=== PATIENT | female | born 1955 | race Caucasian/White ===

== ENCOUNTER 2017-06-10 13:51 | Emergency (ER) | payer SELFPAY ==
[2017-06-10 14:00] VITALS: BP 155/91; PULSE 62; RESP 18; TEMP 98.2; O2SAT 96
[2017-06-10] MEDS ORDERED: HYDR-3133 PO (14:12)
[2017-06-10] MEDS ORDERED: VITATAB43 PO (14:12)
[2017-06-10] MEDS ORDERED: ATOR80TA45 PO (14:12)
[2017-06-10] MEDS ORDERED: ALBU6.7H INH (14:12)
[2017-06-10] MEDS ORDERED: ASPI-516 CHEW (14:12)
[2017-06-10] MEDS ORDERED: METO50TA PO (14:12)
[2017-06-10] MEDS ORDERED: ONE-TAB14 (14:12)
[2017-06-10] MEDS ORDERED: NEXI40CA PO (14:12)
[2017-06-10] MEDS ORDERED: METF500T PO (14:12)
[2017-06-10] MEDS ORDERED: ADVA250A INH (14:12)
[2017-06-10] MEDS ORDERED: PARO10TA2 PO (14:12)
[2017-06-10] MEDS ORDERED: GABA600T PO (14:12)
[2017-06-10] MEDS ORDERED: DONE10TA7 PO (14:12)
[2017-06-10] MEDS ORDERED: MELO15TA20 PO (14:12)
[2017-06-10] MEDS ORDERED: ORPHENADRINE INJ 60 MG/2 ML AMP IM ONE (15:00)
[2017-06-10] MEDS ORDERED: KETOROLAC TROMETHAMINE 60 MG/2 ML (IM) VIAL IM ONE (15:00)
--- NOTE | 2017-06-10 15:57 | RADRPT ---
EXAM DATE/TIME: 06/10/2017 15:17 [facility] COMPARISON: No previous studies available for comparison. INDICATIONS : Fall. Upper and lower back pain. RADIATION DOSE: 43.28 CTDIvol (mGy) ; Combined studies - Thoracic Spine/Lumbar Spine MEDICAL HISTORY : Lyme disease. Barretts esophagus. Mitral valve prolapse. Diabetes. SURGICAL HISTORY : Orthopedic surgery. ENCOUNTER: Initial ACUITY: 1 day PAIN SCALE: 7/10 LOCATION: spine TECHNIQUE: Volumetric scanning of the thoracic spine was performed. Multiplanar reconstructions in the sagittal , coronal and oblique axial planes were performed. Using automated exposure control and adjustment o f the mA and/or kV according to patient size, radiation dose was kept as low as reasonably achievable to obtain optimal diagnostic quality images. DICOM format image data is available electronically f or review and comparison. FINDINGS: FINDINGS: Sagittal images demonstrate normal vertebral body alignment and curvature. No fractures identified. A xial images performed from T1-T2 through T12-L1. There is multilevel disc space narrowing and margina l osteophyte formation maximal at T5-T6. Coronary artery calcifications are present. T1-T2: No significant abnormalities identified. T2-T3: No significant abnormalities identified. T3-T4: No significant abnormalities identified. T4-T5: No significant abnormalities identified. T5-T6: No significant abnormalities identified. T6-T7: No significant abnormalities identified. T7-T8: No significant abnormalities identified. T8-T9: No significant abnormalities identified. T9-T10: No significant abnormalities identified. T10-T11: No significant abnormalities identified. T11-T12: No significant abnormalities identified. T12-L1: No significant abnormalities identified. CONCLUSION: 1. Mild degenerative changes as described above. There is no evidence of acute fracture. Javon Beckman MD on June 10, 2017 at 15:49 Board Certified Radiologist. This report was verified electronically.
--- NOTE | 2017-06-10 16:05 | RADRPT ---
EXAM DATE/TIME: 06/10/2017 15:17 [facility] COMPARISON: No previous studies available for comparison. INDICATIONS : Fall. Upper and lower back pain. RADIATION DOSE: 43.28 CTDIvol (mGy) ; Combined studies - Thoracic Spine/Lumbar Spine MEDICAL HISTORY : Lyme disease. Barretts esophagus. Mitral valve prolapse. Diabetes. SURGICAL HISTORY : Orthopedic surgery. ENCOUNTER: Initial ACUITY: 1 day PAIN SCALE: 7/10 LOCATION: spine TECHNIQUE: Volumetric scanning of the lumbar spine was performed. Multiplanar reconstructions in the sagittal, coronal and oblique axial planes were performed. Using automated exposure control and adjustment of the mA and/or kV according to patient size, radiation dose was kept as low as reasonably achievable t o obtain optimal diagnostic quality images. DICOM format image data is available electronically for review and comparison. FINDINGS: VERTEBRAE: Normal vertebral body height. ALIGNMENT: No evidence of subluxation. T12-L1: The thecal sac has a normal diameter. No evidence of disc bulge or protrusion. The neural foramina are patent bilaterally. L1-L2: The thecal sac has a normal diameter. No evidence of disc bulge or protrusion. The neural foramina are patent bilaterally. L2-L3: The thecal sac has a normal diameter. No evidence of disc bulge or protrusion. The neural foramina are patent bilaterally. L3-L4: The thecal sac has a normal diameter. No evidence of disc bulge or protrusion. The neural foramina are patent bilaterally. L4-L5: The thecal sac has a normal diameter. No evidence of disc bulge or protrusion. The neural foramina are patent bilaterally. L5-S1: The thecal sac has a normal diameter. No evidence of disc bulge or protrusion. The neural foramina are patent bilaterally. CONCLUSION: Normal examination. Mehrdad Ojeda MD on June 10, 2017 at 16:03 Board Certified Radiologist. This report was verified electronically.
--- NOTE | 2017-06-10 16:49 | PD ---
HPI . Fall Chief Complaint: Fall Time Seen by Provider: 14:06 Travel History International Travel<30 days: No Contact w/Intl Traveler<30days: No Traveled to known affect area: No History of Present Illness HPI 61-year-old female presents emergency department via EMS for evaluation of a fall she sustained at the grocery store this afternoon when she slipped on wet concrete during the rain. Patient denies hitting her head or losing consciousness. Patient arrived to the emergency room spinally immobilized. Patient denies any fever, chills, malaise, chest pain, shortness breath, incontinence of urine or stool. Patient is complaining of thoracic and lumbar back pain. Patient denies any paresthesias. She denies any saddle numbness. PFSH Past Medical History Anemia: Yes Arthritis: Yes Asthma: Yes Autoimmune Disease: Yes (LYME DISEASE) Cardiovascular Problems: Yes (SINUS TACH, MITRAL VALVE PROLAPSE) Diabetes: Yes Patient Takes Glucophage: Yes Fibromyalgia: Yes Gastrointestinal Disorders: Yes (IBS, FATTY LIVER, ANOOP'S ESOPHAGUS) GERD: Yes Glaucoma: Yes Hiatal Hernia: Yes Medical other: Yes (ORTHOPEDIC, BLEPHARITIS) Neurologic: Yes (NEUROPATHY) Shingles: Yes Ovarian Cysts: Yes Dilation and Curettage (D&C): Yes Past Surgical History Abdominal Surgery: Yes (LAPROSCOPY) Eye Surgery: Yes (LASER) Other Surgery: Yes (NASAL SEPTUM REPAIR, CYOSURGERY CERVIX, COLPOSCOPY, NEUROMA REMOVED) Social History Alcohol Use: No Tobacco Use: No (VAPE) Substance Use: No Allergies-Medications (Allergen,Severity, Reaction): Coded Allergies: No Known Allergies (Unverified , 06/10/17) Reported Meds & Prescriptions Reported Meds & Active Scripts Active Reported Proventil Hfa 6.7 GM Inh (Albuterol Sulfate) 90 Mcg/Act Aer 1 Puff INH Q4H PRN Advair Diskus Inh (Fluticasone-Salmeterol Inh) 250-50 Mcg/Blist Aer 1 Puff INH BID Rinse mouth after use. Vitamin O02-Ixdfl Acid (Cobalamine Combinations) 500-400 Mcg Tab 1 Tab PO DAILY One Daily Multivitamin (Multivitamin) 1 Each Tablet Aspirin 81 Mg Chew 81 Mg CHEW DAILY Hydroxyzine HCl 25 Mg Tab 25 Mg PO BID Paroxetine (Paroxetine HCl) 10 Mg Tab 10 Mg PO DAILY Metformin (Metformin HCl) 500 Mg Tab 500 Mg PO BIDPC Donepezil 10 Mg Tab 10 Mg PO HS Gabapentin 600 Mg Tab 600 Mg PO TID Meloxicam 15 Mg Tab 15 Mg PO DAILY Nexium (Esomeprazole DR) 40 Mg Capdr 40 Mg PO DAILY Atorvastatin (Atorvastatin Calcium) 80 Mg Tab 80 Mg PO HS Metoprolol Tartrate 50 Mg Tab 50 Mg PO BID Review of Systems Except as stated in HPI: all other systems reviewed are Neg Physical Exam Narrative GENERAL: Well-nourished, well-developed 61-year-old female patient crying in pain, no respiratory distress. Nontoxic appearing. SKIN: Focused skin assessment warm/dry. HEAD: Normocephalic. Atraumatic. EYES: No scleral icterus. No injection or drainage. NECK: Supple, trachea midline. No JVD or lymphadenopathy. CARDIOVASCULAR: Regular rate and rhythm without murmurs, gallops, or rubs. RESPIRATORY: Breath sounds equal bilaterally. No accessory muscle use. GASTROINTESTINAL: Abdomen soft, non-tender, nondistended. MUSCULOSKELETAL: No cyanosis, or edema. BACK: Midline thoracic and lumbar spinal tenderness noted. No obvious deformity , ecchymosis, erythema, cyanosis or edema noted. No CVA tenderness. Data Data Last Documented VS Vital Signs Date Time Temp Pulse Resp B/P (MAP) Pulse Ox O2 Delivery O2 Flow Rate FiO2 06/10/17 14:00 98.2 62 18 155/91 (112) [address] Thor Spine W/O Contrast (06/10/17 14:46) Ct Lumb Spine W/O Contrast (06/10/17 14:46) Ketorolac Inj (Toradol Inj) (06/10/17 15:00) Orphenadrine Inj (Norflex Inj) (06/10/17 15:00) Remove Backboard (06/10/17 16:46) Remove Cervical Collar (06/10/17 16:46) Ed Discharge Order (06/10/17 16:49) [facility] Medical Decision Making Medical Screen Exam Complete: Yes Emergency Medical Condition: Yes Differential Diagnosis Differential diagnoses include but not limited to contusion, sprain, strain, herniation, fracture Narrative Course 61-year-old female patient presents emergency department via EMS after falling at the grocery store. Patient is crying in pain from her lumbar and thoracic region. She denies any incontinence of urine or stool. Patient denies any saddle numbness. Patient is able to move her lower extremities. She was removed from the backboard. Patient has no neck pain or limited range of motion neck. Cervical collar removed. CT of thoracic and lumbar region ordered and pending. Both show no acute fracture. Patient is given IM injection of Toradol and Norflex and discharged home with instructions for supportive care, returning to the emergency Department with any worsening condition but otherwise follow up with primary care. Last Impressions Thoracic Spine CT 06/10/17 1446 Signed Impressions: Service Date/Time: Saturday, June 10, 2017 15:17 - CONCLUSION: 1. Mild degenerative changes as described above. There is no evidence of acute fracture. Javon Beckman MD Lumbar Spine CT 06/10/17 1446 Signed Impressions: Service Date/Time: Saturday, June 10, 2017 15:17 - CONCLUSION: Normal examination. Mehrdad Ojeda MD Diagnosis Primary Impression: Fall Qualified Codes: W19.XXXA - Unspecified fall, initial encounter Referrals: Primary Care Physician Patient Instructions: Fall Prevention for Older Adults (DC), General Instructions Additional Instructions: Please return to emergency department if your symptoms return or worsen. Follow up with your primary care provider. May use heating pads or ice to back for pain management Disposition: 01 DISCHARGE HOME Condition: Stable Charlotte Smith Jun 10, 2017 16:49
== END 2017-06-10 17:05 | disposition home or self-care (01) ==
LOC: PHEFT 13:51
DX: M54.6 Pain in thoracic spine (principal); M54.5 Low back pain; W01.0XXA Fall on same level from slipping, tripping and stumbling without subsequent striking against object, initial encounter; Y92.512 Supermarket, store or market as the place of occurrence of the external cause
CPT/HCPCS: 72128; 72131; 96372; 99285; J1885; J2360